=== PATIENT | female | born 1965 | race Caucasian/White ===

== ENCOUNTER 2024-10-02 07:13 | Day surgery (SDC) | payer OTHER ==
[~2024-10-02 07:13] MED LIST: Sodium Chloride 0.9% 10 ML Syringe FLUSH PRN; Sodium Chloride 0.9% 10 ML Syringe FLUSH SCH
[2024-10-02] MEDS ORDERED: fentaNYL 100 MCG/2 ML SDV IVPUSH PRN (07:21)
[2024-10-02] MEDS ORDERED: HYDROmorphone 0.5 MG/0.5 ML Syringe IVPUSH PRN (07:21)
[2024-10-02] MEDS ORDERED: Ondansetron 4 MG/2 ML SDV IVPUSH PRN (07:21)
[2024-10-02] MEDS: Lactated Ringers 1,000 ML IV SCH (07:35)
[2024-10-02] MEDS ORDERED: Lidocaine 2% 5 ML SDV ONE (08:07)
[2024-10-02] MEDS ORDERED: Propofol 200 MG/20 ML SDV ONE ×2 (08:07→08:30)
[2024-10-02] MEDS ORDERED: Ondansetron 4 MG/2 ML SDV ONE (08:26)
== END 2024-10-02 09:30 | disposition home or self-care (01) ==
LOC: JD.SDS 07:13
PROVIDERS: ATTEND Surgery
DX: Z12.11 Encounter for screening for malignant neoplasm of colon (principal); Z79.899 Other long term (current) drug therapy; Z87.891 Personal history of nicotine dependence
CPT/HCPCS: J2003; J2405; J2704; J7120